=== PATIENT | female | born 2005 | race Caucasian/White ===

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

== ENCOUNTER 2023-01-13 20:21 | Emergency (ER) | payer MEDICAID ==
[~2023-01-13] VITALS: Ht 154.9 cm; Wt 75.0 kg
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
[2023-01-13 20:39] LABS: BILIRUBIN,URINE NEGATIVE (NEGATIVE); CLARITY,URINE CLEAR; COLOR,URINE YELLOW; GLUCOSE, URINE (UA) NEGATIVE (NEGATIVE); KETONES,URINE NEGATIVE (NEGATIVE); LEUKOCYTE ESTERASE ,URINE NEGATIVE (NEGATIVE); NITRITE,URINE NEGATIVE (NEGATIVE); PROTEIN,URINE 2+ (NEGATIVE)
[2023-01-13 20:48] LABS: BACTERIA,URINE TRACE /HPF; RBC,URINE RARE /HPF; WBC,URINE RARE /HPF
[2023-01-13 20:56] VITALS: BP 118/72
== END 2023-01-13 20:56 | disposition home or self-care (01) ==
LOC: EDUNIT# 20:21 → ER FS 20:23
DX: O9A.211 Injury, poisoning and certain other consequences of external causes complicating pregnancy, first trimester (principal); S00.511A Abrasion of lip, initial encounter; Z3A.09 9 weeks gestation of pregnancy; Y04.8XXA Assault by other bodily force, initial encounter
CPT/HCPCS: 81000; 99283